=== PATIENT | female | born 1945 | race Caucasian/White ===

== ENCOUNTER 2018-01-05 15:33 | Outpatient (CLI) | payer MEDICARE, BC | END 2018-01-05 15:34 | disposition home or self-care (01) | LOC: BICMAMMO 15:33 | PROVIDERS: ATTEND Family Medicine | DX: Z12.31 Encounter for screening mammogram for malignant neoplasm of breast (principal) | CPT/HCPCS: 77063; 77067 ==

== ENCOUNTER 2019-01-11 08:04 | Outpatient (CLI) | payer MEDICARE, BC ==
--- NOTE | 2019-01-11 08:39 | MMO ---
Bilateral MAMMO Bilat Screen [facility]. CLINICAL HISTORY: Patient is 73 years old and is seen for screening. The patient has no family history of breast cancer. The patient has no personal history of cancer. The patient has a history of right Ultrasound Guided Core Biopsy in August, - benign and left Excisional Biopsy in ? - benign. VIEWS: The views performed were: bilateral craniocaudal with tomosynthesis and bilateral mediolateral oblique with tomosynthesis. FILMS COMPARED: The present examination has been compared to prior imaging studies performed at [facility] on 12/14/2014, 12/17/2015, 12/21/2016 and 01/05/2018. MAMMOGRAM FINDINGS: There are scattered fibroglandular densities. Finding 1: There are stable benign appearing calcifications seen in both breasts. Finding 2: There are several stable masses seen in both breasts. There are no suspicious masses, suspicious calcifications, or new areas of architectural distortion. IMPRESSION: THERE IS NO MAMMOGRAPHIC EVIDENCE OF MALIGNANCY. A ROUTINE FOLLOW-UP MAMMOGRAM IN 1 YEAR IS RECOMMENDED. THE RESULTS OF THIS EXAM WERE SENT TO THE PATIENT. ACR BI-RADS Category 2 - Benign finding MAMMOGRAPHY NOTE: 1. A negative mammogram report should not delay a biopsy if a dominant of clinically suspicious mass is present. 2. Approximately 10% to 15% of breast cancers are not detected by mammography. 3. Adenosis and dense breasts may obscure an underlying neoplasm.
== END 2019-01-11 08:05 | disposition home or self-care (01) ==
LOC: BICMAMMO 08:04
PROVIDERS: ATTEND Family Medicine
DX: Z12.31 Encounter for screening mammogram for malignant neoplasm of breast (principal)
CPT/HCPCS: 77063; 77067

== ENCOUNTER 2019-08-29 09:00 | Outpatient (CLI) | payer MEDICARE, BC ==
[2019-08-29 09:59] LABS: #Eosinphils 0.1 thou/uL (0.0-0.7); #Lymphocytes 0.7 thou/uL (1.20-3.40); #Monocytes 0.3 thou/uL (0.11-0.59); #Neutrophils 2.3 thou/uL (1.40-6.50); %Basophils 1.2 % (0.0-1.0); %Eosinophils 4.2 % (0.0-10.0); %Lymphocytes 20.2 % (21.0-51.0); %Monocytes 8.6 % (0.0-10.0); %Neutrophils 65.8 % (42.0-75.0); Hemoglobin 12.7 g/dL (12.0-16.0); Mean Corpuscular HGB CONC 33.4 g/dL (32.0-36.0); Mean Corpuscular Hemoglobin 31.6 pg (27.0-31.0); Mean Corpuscular Volume 94.8 fL (78.0-98.0); Mean Platelet Volume 7.7 fL (7.4-10.4); Platelet Count 258 thou/uL (130-400); RBC Distribution Width 11.5 % (11.5-14.5); Red Blood Cell (RBC) Count 4.03 mill/uL (4.20-5.40); White Blood Cell (WBC) Count 3.5 thou/uL (4.8-10.8)
[2019-08-29 10:18] LABS: Anion Gap 10 mmol/L (10-20); BUN (Urea Nitrogen) 11 mg/dL (9.8-20.1); Carbon Dioxide 27 mmol/L (23-31); Chloride 105 mmol/L (98-107); Potassium 4.2 mmol/L (3.5-5.1); Sodium 138 mmol/L (136-145)
[2019-08-29 10:19] LABS: Calc. Creatinine Clearance 0 mL/min (70-130); Calcium 9.3 mg/dL (7.8-10.44); Estimated GFR-MDRD Greater than 90; Glucose 98 mg/dL (83-110)
== END 2019-08-29 09:01 | disposition home or self-care (01) ==
LOC: LABBT 09:00
PROVIDERS: ATTEND Orthopaedic Surgery
DX: Z01.818 Encounter for other preprocedural examination (principal); M24.011 Loose body in right shoulder
CPT/HCPCS: 80048; 85025; 93005; 93010

== ENCOUNTER 2019-08-30 07:24 | Day surgery (SDC) | payer MEDICARE, BC ==
[2019-08-29 09:21] VITALS: BMI 21.2
[2019-08-30] MEDS ORDERED: Fentanyl 100 MCG/2 ML VIAL ONE (08:45)
[2019-08-30] MEDS ORDERED: Midazolam HCl 2 mg/2 ml Vial ONE (08:45)
[2019-08-30] MEDS ORDERED: traMADol HCl 50 MG TAB PO PRN ×2 (09:17)
[2019-08-30] MEDS ORDERED: Promethazine HCl 25 MG/ML VIAL IM PRN (09:17)
[2019-08-30] MEDS ORDERED: Ondansetron PF 4 MG/2 ML Vial IVP PRN (09:17)
[2019-08-30] MEDS ORDERED: Zolpidem Tartrate 5 MG TAB PO PRN (09:17)
[2019-08-30] MEDS ORDERED: Ropivacaine 0.2% 550 ML 550 ML NERVE BLCK SCH (09:17)
[2019-08-30] MEDS ORDERED: Acetaminophen 325 MG TAB PO PRN (09:17)
[2019-08-30] MEDS ORDERED: HYDROcodone/Acetaminophen 10/325 mg Tablet PO PRN ×2 (09:17)
[2019-08-30] MEDS ORDERED: Fentanyl 100 MCG/2 ML VIAL IV PRN (09:18)
[2019-08-30] MEDS ORDERED: Lidocaine 1% w/Epinephrine 1:100K 20 ML VIAL ONE (10:29)
[2019-08-30] MEDS ORDERED: EPHEDRINE 25 MG/5 ML SYRINGE ONE ×2 (11:24→12:56)
[2019-08-30] MEDS ORDERED: diphenhydrAMINE 50 MG/ML VIAL ONE (12:24)
[2019-08-30] MEDS ORDERED: Ondansetron PF 4 MG/2 ML Vial ONE (12:56)
[2019-08-30] MEDS ORDERED: Ropivacaine 0.2% HCl/PF (40 MG/20 ML VIAL) ONE (12:56)
[2019-08-30] MEDS ORDERED: Ropivacaine 0.5% HCl/PF (150 MG/30 ML VIAL) ONE (12:56)
[2019-08-30] MEDS ORDERED: Glycopyrrolate 0.2 MG/ML 5 ML SYRINGE ONE (12:56)
[2019-08-30] MEDS ORDERED: Lidocaine 1% PF 5 ML VIAL ONE (12:56)
[2019-08-30] MEDS ORDERED: PROPOFOL 200 MG/20 ML VIAL ONE (12:56)
--- NOTE | 2019-08-30 15:54 | OP ---
DATE OF PROCEDURE: 08/30/2019 PREOPERATIVE DIAGNOSES: Right shoulder degenerative SLAP tear, rotator cuff tear, and some loose bodies secondary to some arthritic change in the glenohumeral joint. POSTOPERATIVE DIAGNOSES: 1. 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 2. A small rotator cuff tear in the mid back portion of supraspinatus tendon. 3. Unstable degenerative superior labral tear with biceps instability. PROCEDURE PERFORMED: Right shoulder arthroscopy with chondroplasty of the glenohumeral joint as well as cartilaginous loose body removal, followed by arthroscopic rotator cuff repair followed by open biceps tenodesis. CASH CHECKER: Emil Locke PA-C BLOOD LOSS: Approximately 30 mL. COMPLICATIONS: None. ANESTHESIA: She had a general anesthetic as well as preoperative block. IMPLANTS: We used one BioComposite 4.75 SwiveLock for our SpeedFix rotator cuff repair, and we used a 7 x 23 BioComposite Bio-Tenodesis screw for a biceps tenodesis. DISPOSITION: She did go to recovery in stable condition. INDICATIONS: A 73-year-old active female, who comes in complaining of pain, catching, and weakness of the arm. At this time, she was found to have a small cuff tear as well as some cartilaginous loose bodies and she wished to have surgery. DESCRIPTION OF PROCEDURE: After all appropriate consent forms were explained and signed, she was taken back to the operative room and at this time was given general anesthetic. Once the level of anesthesia was appropriate, she was rolled into the left lateral decubitus position with all bony prominences well padded. An axillary roll was placed underneath the left axilla and a baker bag was inflated to hold in its position. All bony prominences were well padded. The right shoulder and upper extremity were then taken through full range of motion. The arm was then suspended with 10 pounds in standard arthroscopic fashion. We then prepped and draped the right shoulder and upper extremity in standard surgical fashion. Bony anatomical landmarks were drawn out, and the subacromial space was infiltrated with Marcaine with epinephrine. At this time, the cannula was placed to the glenohumeral joint posteriorly and we did have an evacuation of fluid. At this time, the camera was placed into the joint and anterior working portal was made using a needle localization technique. Diagnostic arthroscopy commenced. There was fair amount of floating cartilaginous loose bodies. There was some significant grade 3 and 4 chondromalacia of the glenohumeral joint of both the humeral head and glenoid. All unstable chondral flaps were debrided back to a stable base. All loose bodies were removed with a suction shaver device. The axillary pouch was then visualized and free from any remaining loose bodies. The subscapularis was intact. Rotator cuff tear was debrided from the undersurface and at this time, the labrum was evaluated. There was significant degenerative labrum with complete biceps instability and at this time, an 18-gauge needle was used to mariano the biceps. A stitch was placed through this, and the scissors were used to cut the biceps off the superior labrum. At this time, the SERFAS energy was then introduced into the glenohumeral joint, and all areas of venous bleeding were coagulated as well as all areas of synovitis for postop pain relief and to make sure we did not have any significant swelling postoperatively. Once the glenohumeral joint was all cleaned up and we were satisfied, we then removed the scope and replaced into the subacromial space. Lateral working portal was then made and at this time, the bursa was removed from off the underlying cuff. There was a small area, which was identified for the cuff to be torn. The probe was able to be placed through this and at this time, a combination of the shaver and the SERFAS energy were used to debride the soft tissue from around this area and removed off the bone to promote healing. A Passport cannula was placed into the shoulder joint and once this was done, we were able to visualize our tear and it was decided secondary to how small this tear was and the SpeedFix would be appropriate. A 4.75 SwiveLock was opened up. The FiberTape that was through this was cut off and was then shuttled through the cuff tear in inverted mattress fashion using the Scorpion device. We then punched and placed our 4.75 SwiveLock on the lateral side of the arm for our repair. At this time, this was felt to be a nice repair completely closing our hole. The inside stitch was removed and our FiberTape was cut. This ended this portion of the procedure. The scope was removed. Shoulder was drained. We then used a 15 blade to cut down through skin to start our biceps tenodesis. Bovie was used to coagulate any brisk venous bleeding. Deltoid fascia was sharply opened, and finger dissection was used in line with the fibers of the deltoid to get down to the underlying transverse humeral ligament and the biceps tendon. Once this was done, we were able to pull the biceps tendon out into the wound. There was significant amount of synovitis surrounding this. This was removed in its entirety. The bicipital groove was completely cleaned. There were some small cartilaginous loose bodies, which were removed as well and once we had obtained good hemostasis, we sutured the tendon, removed the intra-articular portion of this, placed our pin, reamed with a 7 mm reamer to a depth of 25 and placed a 7 x 23 BioComposite Bio-Tenodesis screw in standard fashion. Sutures were tied over top of this, so the screw could not back out. At this time, we thoroughly irrigated and dried this area. The deltoid fascia was closed with a running Vicryl, 2-0 Vicryl and sutures were used to close this small incision as well as our portals. Bulky sterile dressing was applied. The patient was then awakened. She was taken to recovery room in stable condition. All counts were correct at the end of the case and she did receive preoperative IV antibiotics. Job ID: [id number]
== END 2019-08-30 14:23 | disposition home or self-care (01) ==
LOC: SDC 07:24
PROVIDERS: ATTEND Orthopaedic Surgery
PROC: 0LQ14ZZ Repair Right Shoulder Tendon, Percutaneous Endoscopic Approach (ICD-10-PCS; principal; 2019-08-30)
PROC: 0RCJ4ZZ Extirpation of Matter from Right Shoulder Joint, Percutaneous Endoscopic Approach (ICD-10-PCS; 2019-08-30)
PROC: 0LQ14ZZ Repair Right Shoulder Tendon, Percutaneous Endoscopic Approach (ICD-10-PCS; 2019-08-30)
PROC: 0LS10ZZ Reposition Right Shoulder Tendon, Open Approach (ICD-10-PCS; 2019-08-30)
DX: M75.101 Unspecified rotator cuff tear or rupture of right shoulder, not specified as traumatic (principal); M24.011 Loose body in right shoulder; M94.211 Chondromalacia, right shoulder; S43.431A Superior glenoid labrum lesion of right shoulder, initial encounter; E78.5 Hyperlipidemia, unspecified; E78.00 Pure hypercholesterolemia, unspecified; Z79.82 Long term (current) use of aspirin; Z79.899 Other long term (current) drug therapy
CPT/HCPCS: 23430; 29827; A4306; C1713; J0690; J1200; J2250; J2795; J3010

== ENCOUNTER 2020-01-25 09:35 | Outpatient (CLI) | payer MEDICARE, BC ==
--- NOTE | 2020-01-25 12:01 | MMO ---
Bilateral MAMMO Bilat Screen [facility]. CLINICAL HISTORY: Patient is 74 years old and is seen for screening. The patient has no family history of breast cancer. The patient has no personal history of cancer. The patient has a history of right Ultrasound Guided Core Biopsy in August, - benign and left Excisional Biopsy in ? - benign. VIEWS: The views performed were: bilateral craniocaudal with tomosynthesis and bilateral mediolateral oblique with tomosynthesis. FILMS COMPARED: The present examination has been compared to prior imaging studies performed at [facility] on 12/17/2015, 12/21/2016, 01/05/2018 and 01/11/2019. This study has been interpreted with the assistance of computer-aided detection. MAMMOGRAM FINDINGS: There are scattered fibroglandular densities. Finding 1: There are stable benign appearing calcifications seen in both breasts. Finding 2: There are stable benign appearing densities seen in both breasts. There are no suspicious masses, suspicious calcifications, or new areas of architectural distortion. IMPRESSION: THERE IS NO MAMMOGRAPHIC EVIDENCE OF MALIGNANCY. A ROUTINE FOLLOW-UP MAMMOGRAM IN 1 YEAR IS RECOMMENDED. THE RESULTS OF THIS EXAM WERE SENT TO THE PATIENT. ACR BI-RADS Category 2 - Benign finding MAMMOGRAPHY NOTE: 1. A negative mammogram report should not delay a biopsy if a dominant of clinically suspicious mass is present. 2. Approximately 10% to 15% of breast cancers are not detected by mammography. 3. Adenosis and dense breasts may obscure an underlying neoplasm. Reported by: MARCELLO DICKEY MD Electonically Signed: [id number]
== END 2020-01-25 09:36 | disposition home or self-care (01) ==
LOC: BICMAMMO 09:35
PROVIDERS: ATTEND Family Medicine
DX: Z12.31 Encounter for screening mammogram for malignant neoplasm of breast (principal); Z91.89 Other specified personal risk factors, not elsewhere classified; E78.5 Hyperlipidemia, unspecified
CPT/HCPCS: 36415; 77063; 77067; 80053; 80061

== ENCOUNTER 2021-01-28 11:36 | Outpatient (CLI) | payer MEDICARE, BC | END 2021-01-28 11:37 | disposition home or self-care (01) | LOC: BICMAMMO 11:36 | PROVIDERS: ATTEND Family Medicine | DX: Z12.31 Encounter for screening mammogram for malignant neoplasm of breast (principal); Z91.89 Other specified personal risk factors, not elsewhere classified | CPT/HCPCS: 77063; 77067 ==

== ENCOUNTER 2022-01-15 11:15 | Outpatient (CLI) | payer MEDICARE, BC ==
[~2022-01-15 11:15] MED LIST: Iopamidol 370 76% 100 ML VIAL ONE
== END 2022-01-15 11:16 | disposition home or self-care (01) ==
LOC: CT 11:15
PROVIDERS: ATTEND Family Medicine
DX: R10.30 Lower abdominal pain, unspecified (principal); D18.03 Hemangioma of intra-abdominal structures
CPT/HCPCS: 36415; 71275; 74174; 80053; 85025; 85652; Q9967

== ENCOUNTER 2022-01-29 11:23 | Outpatient (CLI) | payer MEDICARE, BC | END 2022-01-29 11:24 | disposition home or self-care (01) | LOC: BICMAMMO 11:23 | PROVIDERS: ATTEND Family Medicine | DX: Z12.31 Encounter for screening mammogram for malignant neoplasm of breast (principal); Z91.89 Other specified personal risk factors, not elsewhere classified | CPT/HCPCS: 77063; 77067 ==

== ENCOUNTER 2023-03-09 11:41 | Outpatient (CLI) | payer MEDICARE, BC | END 2023-03-09 11:42 | disposition home or self-care (01) | LOC: BICMAMMO 11:41 | PROVIDERS: ATTEND Family Medicine | DX: Z12.31 Encounter for screening mammogram for malignant neoplasm of breast (principal) | CPT/HCPCS: 77063; 77067 ==

== ENCOUNTER 2024-04-13 09:50 | Outpatient (CLI) | payer MEDICARE | END 2024-04-13 09:51 | disposition home or self-care (01) | LOC: BICMAMMO 09:50 | PROVIDERS: ATTEND Family Medicine | DX: Z12.31 Encounter for screening mammogram for malignant neoplasm of breast (principal); Z78.0 Asymptomatic menopausal state; M81.0 Age-related osteoporosis without current pathological fracture; M85.88 Other specified disorders of bone density and structure, other site; Z91.89 Other specified personal risk factors, not elsewhere classified | CPT/HCPCS: 77067; 77080 ==

== ENCOUNTER 2025-04-17 13:11 | Outpatient (CLI) | payer MEDICARE | END 2025-04-17 13:12 | disposition home or self-care (01) | LOC: BICMAMMO 13:11 | PROVIDERS: ATTEND Family Medicine | DX: Z12.31 Encounter for screening mammogram for malignant neoplasm of breast (principal); Z91.89 Other specified personal risk factors, not elsewhere classified | CPT/HCPCS: 77063; 77067 ==